=== PATIENT | male | born 1955 | race Hispanic/Latino ===

== ENCOUNTER 2017-09-27 21:32 | Emergency (ER) | payer MEDICARE ==
[2017-09-27 21:33] VITALS: BMI 21.1
[2017-09-27 22:31] VITALS: RESP 0; TEMP 96
--- NOTE | 2017-09-27 22:34 | ED PDOC ---
Arrival/HPI - General Time Seen by Provider: 09/27/17 21:55 Historian: EMS - History of Present Illness Narrative History of Present Illness (Text): 09/27/17 22:33 A 61 year old male was brought in to the emergency department s/p cardiac arrest at home. Patient arrived via bls, CPR and BVM in progress. Patient with a history of oral squamous cell cancer with mets, COPD and pancreatic cancer. As per collateral information, patient apparently with respiratory difficulty and vomiting blood at home during the day and then became poorly responsive, bls called. On arrival, patient in cardiac arrest. On arrival to the emergency department, patient still apneic, pulseless, acls protocol initiated. Symptom Onset: Sudden Symptom Course: Unchanged Activities at Onset: Rest Context: Home Past Medical History - Provider Review Nursing Documentation Reviewed: Yes - Cardiac Hx Pacemaker: No - Pulmonary Hx Emphysema: Yes Other/Comment: tracheostomy done today - Neurological Hx Paralysis: No - Hematological/Oncological Hx Blood Transfusions: No Hx Blood Transfusion Reaction: No - Musculoskeletal/Rheumatological Hx Musculoskeletal Disorders: No - Gastrointestinal Other/Comment: weight loss 32 lbs in 2 months, difficulty eating and drinking - Psychiatric Hx Emotional Abuse: No Hx Physical Abuse: No Hx Substance Use: No - Past Surgical History Past Surgical History: Unable to Obtain - Surgical History Other/Comment: tonsila and adenoidectomy - Anesthesia Hx Anesthesia Reactions: No Hx Malignant Hyperthermia: No - Suicidal Assessment Feels Threatened In Home Enviroment: No Family/Social History - Physician Review Nursing Documentation Reviewed: Yes Family/Social History: No Known Family HX Smoking Status: Former Smoker Hx Alcohol Use: Yes (OCCASSIONAL) Hx Substance Use: No Allergies/Home Meds Allergies/Adverse Reactions: Allergies No Known Allergies Allergy (Verified 06/25/16 10:18) Home Medications: Home Meds Medication Instructions Recorded Confirmed Cyproheptadine HCl [Cyproheptadine 4 mg PO BID 06/25/16 10/25/16 HCl] Ergocalciferol (Vitamin D2) 1.25 mg PO SUN 06/25/16 10/25/16 [Vitamin D] Magnesium Oxide 400 mg PO QAM 06/25/16 10/25/16 Pantoprazole Sodium 40 mg PO QAM 06/25/16 10/25/16 Albuterol 0.042% [Albuterol 0.042% 3 ml IH QID 07/23/16 10/25/16 Inhal Yesenia (1.25mg/3ml) UD] Rosuvastatin Calcium [Crestor] 1 tab PO DAILY 10/25/16 10/25/16 Vitamin B Complex [Super B-50 1 tab PO DAILY 10/25/16 10/25/16 Complex] Review of Systems - Review of Systems Systems not reviewed;Unavailable: Acuity of Condition Physical Exam - Physical Exam Physical Exam Limitations: Clinical Condition, Other (cardiac arrest) Vital Signs Temp Pulse Resp BP 09/27/17 21:32 96 F L 0 L 0 L 0/0 L Temperature: Afebrile Blood Pressure: Hypotensive Pulse: Pulseless Respiratory Rate: Apneic Appearance: Positive for: Other (comatose) - Systems Exam Head: Present: Atraumatic, Normocephalic Pupils: Present: Other (fixed/dilated) Mouth: Present: Other (blood in oropharynx) Pharnyx: Present: Other (blood in oropharynx) Neck: Present: Normal Range of Motion Respiratory/Chest: Present: Clear to Auscultation Cardiovascular: Present: Other (no rate/rhythm) Upper Extremity: Present: Other (mottled) Lower Extremity: Present: Other (mottled) Neurological: Present: Other (no response to painful stimuli) Medical Decision Making ED Course and Treatment: 09/27/17 22:31 Impression: A 61 year old male with cardiac arrest. Prior Visits: Notes and results from previous visits were reviewed. Patient was last seen in the emergency department on 04/22/13 for evaluation of generalized weakness and malaise. Progress Notes: PMD to be notified. On arrival, acls continued, placed in monitor, asystole. Intraosseous line placed to administer medications. Patient was intubated. Patient remained in asystole, unresponsiveness to all chemical resuscitation efforts. Patient was subsequently pronounced. cloth colors examiner to be notified. Patient's family to be notified. PROCEDURE: INTUBATION Performed by the emergency provider Time: 21:43 Consent: Discussion of the risks, benefits, and alternatives to the procedure, along with informed consent was precluded by the urgency of the procedure and the patient condition. Timeout: A timeout to verify the correct patient, procedure, and site was performed. Indication: cardiac arrest Pre-oxygenation: [id number] Medications: See MAR for details. ETT Size: 7.5 Confirmation: equal breath sounds detector color change, tube fogging, adequate chest rise, improving pulse oximetry reading, improved skin color, and absence of gastric sounds. ETT Secured: The cuff was inflated and the tube was secured appropriately at a distance of 22 cm at the lip. Post-Procedure: There were no immediate complications. 09/27/17 22:45 Spoke with CHARLEY Randolph, who was notified of patient's . - Scribe Statement The provider has reviewed the documentation as recorded by the Cyndi Cosby Provider Scribe Attestation: All medical record entries made by the Kathyibe were at my direction and personally dictated by me. I have reviewed the chart and agree that the record accurately reflects my personal performance of the history, physical exam, medical decision making, and the department course for this patient. I have also personally directed, reviewed, and agree with the discharge instructions and disposition. Disposition/Present on Arrival - Present on Arrival Any Indicators Present on Arrival: No History of DVT/PE: No History of Uncontrolled Diabetes: No Urinary Catheter: No History Surgical Site Infection Following: None - Disposition Have Diagnosis and Disposition been Completed?: Yes Diagnosis: Cardiac arrest Disposition: WITH WITHOUT AUTOPSY Disposition Time: 21:52 Patient Problems: Current Active Problems Problem Status Onset Cardiac arrest Acute Condition: Referrals: Amador Mendez MD [Primary Care Provider] - Follow up with primary
[2017-09-28 00:13] VITALS: BP 0/0; PULSE 0
== END 2017-09-28 01:17 ==
LOC: ED 21:32
DX: I46.9 Cardiac arrest, cause unspecified (principal)